=== PATIENT | female | born 1990 | race Caucasian/White ===

== ENCOUNTER 2023-04-25 13:25 | Emergency (ER) | payer OTHER, SELFPAY ==
[2023-04-25 14:13] VITALS: BP 138/84; PULSE 117; RESP 18; TEMP 36.4; O2SAT 99
--- NOTE | 2023-04-25 15:03 | ED.URI ---
HPI - URI/Sore Throat General Chief Complaint: Upper Respiratory Infection Stated Complaint: sorethroat Time Seen by Provider: 04/25/23 14:52 Source: patient, RN notes reviewed and other (friend of family) Mode of arrival: ambulatory Limitations: other (autism, illness) History of Present Illness HPI Narrative: Patient has presented today by friend of family complaining of possible sore throat/illness. Patient is visiting from [place] for the holidays and was picked up from the airport this afternoon and has been gesturing to her throat, and possible pain. Patient has history of autism, and is generally chatty, but since being picked up, friend has noticed patient does not want to speak much and does not want to drink fluids, which is very much unlike her. Related Data Allergies Allergy/AdvReac Type Severity Reaction Status Date / Time No Known Allergies Allergy Verified 04/25/23 15:25 Review of Systems Review of Systems: CONSTITUTIONAL: Denies body aches, fever, chills, or sweats. EYES: Denies visual changes, redness, or discharge. ENT: Denies rhinorrhea, congestion, sore throat, or otalgia. +gesturing to throat CARDIOVASCULAR: Denies chest pain, palpitations, or edema. RESPIRATORY: Denies cough or dyspnea. GASTROINTESTINAL: Denies abdominal pain, nausea, vomiting, or diarrhea. GENITOURINARY: Denies dysuria or hematuria. SKIN: Denies rash, itching, or wounds. MUSCULOSKELETAL: Denies back pain, joint pain, or myalgia. NEUROLOGIC: Denies headache, numbness, tingling, or weakness. PSYCH: Denies depression or anxiety. [facility] Past Medical History Medical History (Updated 04/25/23 @ 15:25 by Paige Schmid, [facility], ) Autism Comments At time of signature, I have reviewed and agree with nursing past medical, surgical, social and family history unless otherwise noted. Please see nursing chart for further information. There is no relevant family history pertinent to the presenting complaint Exam Narrative: GENERAL: Well-appearing, well-nourished, and in no acute distress. HEAD: Normocephalic, atraumatic. EYES: EOMI. No redness or drainage. Conjunctivae normal. ENT: Mucous membranes pink and moist. Nares clear. No rhinorrhea. TMs normal bilaterally. Throat erythematous. Unable to visualize entire posterior oropharynx as patient refuses to open her mouth more than 1 finger breadth. Grimaces with swallowing water. NECK: Normal AROM. Supple. Bilateral anterior and posterior cervical chain lymphadenopathy. CHEST: No respiratory distress. Clear to auscultation. HEART: Regular rate and rhythm. No murmur appreciated. EXTREMITIES: Normal range of motion. No edema. SKIN: Warm, dry, no rash. Capillary refill normal. Normal skin turgor. NEURO: No focal deficits. Alert and oriented x3. Gait steady. PSYCH: Normal affect. No signs of depression or anxiety. Course Course Level of Care: Express Care Visit Vital Signs Vital signs: Vital Signs Temperature 97.6 F 04/25/23 14:13 Pulse Rate 117 H 04/25/23 14:13 Respiratory Rate 18 04/25/23 14:13 Blood Pressure 138/84 04/25/23 14:13 Pulse Oximetry 99 04/25/23 14:13 Oxygen Delivery Room Air 04/25/23 14:13 Temperature 97.6 F 04/25/23 14:13 Pulse Rate 117 H 04/25/23 14:13 Respiratory Rate 18 04/25/23 14:13 Blood Pressure 138/84 04/25/23 14:13 Pulse Oximetry 99 04/25/23 14:13 Oxygen Delivery Room Air 04/25/23 14:13 Reviewed MDM - URI/Sore Throat Differential Diagnosis Differential diagnosis: Likely upper respiratory infection, pharyngitis and other (Strep throat) Medical Records Medical records narrative: Due to patient's physical exam and the fact that patient is nonverbal at this time, I will start her on amoxicillin as a precaution. Anticipatory guidance given. Lab Data Attestation: I reviewed the patient's lab results. Lab results narrative: Rapid strep negative. Critical Care Time Critical Care Time Critic
== END 2023-04-25 15:33 | disposition home or self-care (01) ==
PROVIDERS: Emergency Provider Nurse Practitioner
DX: J02.9 Acute pharyngitis, unspecified (principal)
CPT/HCPCS: 87081; 87880; 99213; G0463